=== PATIENT | male | born 1970 | race Caucasian/White ===

== ENCOUNTER 2016-12-29 19:59 | Emergency (ER) | payer OTHER ==
[~2016-12-29] VITALS: Ht 185.4 cm; Wt 100.0 kg
[~2016-12-29 19:59] MED LIST: ANF50 PO; ASPCH81 PO; CLOM75CA3 PO; MODA200T41 PO; MULTTAB5 PO; OMEG10007 PO; TOPI100T20 PO
[2016-12-29 20:01] VITALS: Ht 185.4 cm; Wt 100.0 kg
[2016-12-29] MEDS ORDERED: SILD1TAB20 (20:08)
[2016-12-29] MEDS ORDERED: SODIUM CHLORIDE 0.9% 1000ML 1,000 ML IV STA ×2 (20:29→21:13)
[2016-12-29] MEDS ORDERED: ONDANSETRON INJ 2 MG/ML 2 ML VIAL IV STA (20:29)
[2016-12-29] MEDS ORDERED: MoRPHine SULFATE 4 MG/ML 1 ML CARP\\VIAL IV STA ×3 (20:29→23:21)
[2016-12-29] MEDS ORDERED: OPTIRAY 320 IV PRN (20:45)
[2016-12-29 20:51] LABS: BASO % 0.2 %; BASO ABS # 0.03 K/uL (0-0.2); COMPLETE YES; EOS % 0.8 %; IG% 0.5 %; LYMPH % 10.1 %; LYMPH ABS # 1.44 K/uL (1.2-3.4); MEAN CELL VOLUME 88.4 fL (80-100); MEAN CORPUSCULAR HEMOGLOBIN 30.2 pg (25-34); MEAN CORPUSCULAR HGB CONC 34.2 g/dl (32-36); MEAN PLATELET VOLUME 10.9 fL (7.4-10.4); MONO % 8.2 %; NEUT % 80.2 %; PLATELET COUNT 249 K/uL (130-400); RED BLOOD COUNT 5.43 M/uL (4.7-6.1); WHITE BLOOD COUNT 14.22 K/uL (4.8-10.8)
[2016-12-29 20:56] LABS: ISTAT CREATININE 1.8 mg/dl (0.6-1.3); ISTAT IONIZED CALCIUM 1.1 mmol/l (1.12-1.32)
[2016-12-29 21:11] LABS: BUN/CREATININE RATIO 6.2 (10-20); CALCIUM 8.9 mg/dl (8.5-10.1); CREATININE 2.1 mg/dl (0.60-1.40); POTASSIUM 3.6 mmol/L (3.5-5.1)
[2016-12-29 21:14] LABS: ALB/GLOB RATIO 1.1 (0.9-2)
[2016-12-29 21:31] VITALS: TEMP 36.4
[2016-12-29 21:35] LABS: URINE APPEARANCE CLEAR (CLEAR); URINE BILIRUBIN NEG (NEG); URINE COLOR YELLOW; URINE NITRITE NEG (NEG); URINE PH 6.5 (4.5-7.5); URINE SPECIFIC GRAVITY 1.005 (1.000-1.030); UROBILINOGEN NEG (NEG); ZZUR CULT IF INDIC CLEAN CATCH NO
[2016-12-29 21:37] LABS: MANUAL MICROSCOPIC REQUIRED? NO; REVIEW REQ? NO
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
[2016-12-29 22:06] LABS: BENZODIAZEPINE, URINE NEG (NEG); COCAINE,URINE POS (NEG); PHENCYCLIDINE, URINE NEG (NEG)
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
[2016-12-29 22:32] LABS: CKMB/CK RATIO 1.2 (0-3.0)
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
[2016-12-30] MEDS ORDERED: MoRPHine SULFATE 4 MG/ML 1 ML CARP\\VIAL IV SCH (00:30)
[2016-12-30 03:20] VITALS: BP 111/59; PULSE 85; O2SAT 98
[2017-01-07 09:14] LABS: COCAINE, URINE 1650 NG/ML (CUTOFF=100); COD UR NEGATIVE NG/ML (CUTOFF=50); HYDROCOD UR NEGATIVE NG/ML (CUTOFF=50); HYDROMOR UR NEGATIVE NG/ML (CUTOFF=50); MORPHINE UR 583 NG/ML (CUTOFF=50); NORHYDROCODONE CONF UR NEGATIVE NG/ML (CUTOFF=50); OXYMORPH UR NEGATIVE NG/ML (CUTOFF=50)
== END 2016-12-30 03:15 | disposition short-term general hospital (02) ==
LOC: C.EDB 20:00 → C.EDA 12-30 03:15
DX: S22.22XA Fracture of body of sternum, initial encounter for closed fracture (principal); S20.219A Contusion of unspecified front wall of thorax, initial encounter; M25.561 Pain in right knee; N17.9 Acute kidney failure, unspecified; S26.91XA Contusion of heart, unspecified with or without hemopericardium, initial encounter; R79.89 Other specified abnormal findings of blood chemistry; F14.90 Cocaine use, unspecified, uncomplicated; V43.52XA Car driver injured in collision with other type car in traffic accident, initial encounter; Y92.488 Other paved roadways as the place of occurrence of the external cause; F10.10 Alcohol abuse, uncomplicated; I25.10 Atherosclerotic heart disease of native coronary artery without angina pectoris; F32.9 Major depressive disorder, single episode, unspecified; K21.9 Gastro-esophageal reflux disease without esophagitis; F42.9 Obsessive-compulsive disorder, unspecified; L40.9 Psoriasis, unspecified; G47.30 Sleep apnea, unspecified; Z80.9 Family history of malignant neoplasm, unspecified; Z83.3 Family history of diabetes mellitus; Z83.79 Family history of other diseases of the digestive system; Z83.6 Family history of other diseases of the respiratory system; F17.210 Nicotine dependence, cigarettes, uncomplicated

== ENCOUNTER → 2017-05-07 | Outpatient (CLI) | payer OTHER ==
[~2017-05-07] MED LIST changes: -ANF50 PO; -ASPCH81 PO; -CLOM75CA3 PO; +GADAVIST IV PRN; -MODA200T41 PO; -MULTTAB5 PO; -OMEG10007 PO; -TOPI100T20 PO
--- NOTE | 2017-05-07 14:58 | DIAGNOSTIC IMAGING REPORT ---
BRAIN COMBO HISTORY: 46 years-old Male F07.81 Post concussion syndrome COMPARISON: None available TECHNIQUE: Multiplanar multisequence MRI of the brain was obtained both with and without 10 mL Gadavist. FINDINGS: There is no restricted diffusion to acute ischemia. The midline structures including the corpus callosum, optic chiasm, brainstem, infundibulum, pituitary and pineal glands are unremarkable on the sagittal T1 sequence. No cerebellar tonsillar herniation. There is no acute intracranial hemorrhage, midline shift, abnormal extra-axial collections, intracranial mass or hydrocephalus identified. Nonspecific punctate focus of increased T2/FLAIR signal within the subcortical right frontal lobe as seen on image 8 of the coronal T2 FLAIR series is noted, likely of no clinical significance. This may reflect focal gliosis. Similar appearing lesion is seen on image 12 of the coronal T2 series involving subcortical left frontal lobe. The major flow voids at the skull base appear patent. Orbits are symmetric. Trace left mastoid effusion. Mild ethmoid sinus disease. There is a linear area of increased T2/FLAIR signal within the left parietal lobe extending towards the atria left lateral ventricle, nicely seen on images 16 and 17 of the coronal FLAIR series, suggesting a small developmental venous anomaly however it is atypical that no associated enhancement is seen within this distribution. No abnormal intra-axial or extra-axial enhancement is identified. IMPRESSION: 1. No acute intracranial abnormality. Negative for hemorrhage or abnormal enhancement. 2. A few foci of subcortical punctate increased T2/FLAIR signal within the frontal lobes are nonspecific and likely of no clinical significance suggesting areas of gliosis. 3. Trace left mastoid effusion. The above report was generated using voice recognition software. It may contain grammatical, syntax or spelling errors. Electronically signed by: Tanmay Milan M.D. 05/07/2017 2:57 PM Dictated Date/Time: 05/07/2017 2:42 PM
== END | disposition home or self-care (01) ==
PROVIDERS: ATTEND Physician Assistant
DX: F07.81 Postconcussional syndrome (principal)